=== PATIENT | female | born 1985 ===

== ENCOUNTER 2023-06-11 08:48 | Day surgery (SDC) | payer BC, MEDICAID ==
[~2023-06-11] VITALS: Ht 167.6 cm; Wt 105.2 kg
[~2023-06-11 08:48] MED LIST: LR 1,000 ML IV SCH; Ondansetron 4 MG/2 ML VIAL IV PRN
[2023-06-11 09:46] VITALS: BP 134/92; PULSE 85; TEMP 97
--- NOTE | 2023-06-11 09:50 | NUR ---
Pt arrived with friend, bowels are WNL for the procedure, VSS and RR even and unlabored; reviewed meds/pharm/allergies/history reviewed; consents x3 reviewed and signed; IV to RAC and LR hanging; to await procedure.
[2023-06-11] MEDS ORDERED: fentaNYL 50 MCG/ML 2 ML VIAL ONE (09:53)
[2023-06-11] MEDS ORDERED: Lidocaine PF 2% (20 MG/ML) 5 ML VIAL ONE (09:53)
[2023-06-11] MEDS ORDERED: BENTYL 10MG10 MG/CAP PO (09:57)
[2023-06-11] MEDS ORDERED: PRAVACHOL10 MG PO (09:57)
[2023-06-11] MEDS ORDERED: PAMELOR 10MG10 MG PO (09:58)
[2023-06-11] MEDS ORDERED: DUPIXENT P300 MG/2 M SQ (09:58)
[2023-06-11] MEDS ORDERED: WEGOVY2.4 MG/0.7 SQ (09:58)
[2023-06-11] MEDS ORDERED: PROAIR HFA0.09 MG/AC IH (09:58)
[2023-06-11] MEDS ORDERED: PROTONIX 40MG T40 MG PO (09:59)
[2023-06-11] MEDS ORDERED: TRELEGY ELLIPT1 EAC1 IH (09:59)
[2023-06-11] MEDS ORDERED: ALBUTEROL0.83 MG/ML IH (09:59)
[2023-06-11] MEDS ORDERED: EPIPEN 2-PAK1 MG/ML IM (10:00)
[2023-06-11 11:00] VITALS: BP 131/86; PULSE 79; TEMP 97.4
[2023-06-11 11:15] VITALS: BP 121/69; PULSE 77
[2023-06-11 11:28] VITALS: BP 128/94; PULSE 74
--- NOTE | 2023-06-11 11:35 | NUR ---
1100- PATIENT RETURNS TO [facility] [place] [facility] VIA CART. PT AWAKE AND ALERT. RESPIRATIONS UNLABORED. AMBULATED TO RECLINER CHAIR WITH 2:1 SBA. PT DENIES NAUSEA OR ABDOMINAL PAIN. HOOKED UP TO MONITOR AND VS OBTAINED. CALL LIGHT AT SIDE. 1106- PATIENT TOLERATING CRANBERRY JUICE AND MUFFIN WITHOUT NAUSEA OR DIFFICULTY SWALLOWING. 1115- D/C INSTRUCTIONS REVIEWED WITH PATIENT. PT VERBALIZED UNDERSTANDING AND A COPY OF INSTRUCTIONS PROVIDED IN D/C FOLDER. 1123- PATIENT DRESSES SELF. 1125- DR. ENRIQUEZ IN ROOM SPEAKING WITH PATIENT. 1135- PATIENT DISCHARGED FROM UNIT VIA W/C TO A PERSONAL VEHICLE. PT LEFT HOSPITAL IN STABLE CONDITION.
== END 2023-06-11 11:35 | disposition home or self-care (01) ==
LOC: SDCO 08:48
DX: K57.30 Diverticulosis of large intestine without perforation or abscess without bleeding (principal); K64.0 First degree hemorrhoids; K44.9 Diaphragmatic hernia without obstruction or gangrene; K29.30 Chronic superficial gastritis without bleeding; K29.80 Duodenitis without bleeding; K21.00 Gastro-esophageal reflux disease with esophagitis, without bleeding
CPT/HCPCS: J2704; J3010; J7120